=== PATIENT | female | born 1960 | race Caucasian/White ===

== ENCOUNTER 2019-09-07 10:12 | Emergency (ER) | payer OTHER, SELFPAY ==
[~2019-09-07] VITALS: Ht 172.7 cm; Wt 103.0 kg
[2019-09-07 10:20] VITALS: BP 147/79
[2019-09-07] MEDS ORDERED: ACETAMINOPHEN EXTRA STRENGTH 500 MG TAB PO ONE (12:20)
[2019-09-07 13:07] VITALS: BP 147/79
== END 2019-09-07 13:07 | disposition home or self-care (01) ==
LOC: MED 10:12 → EEVIPCON 10:12 → MED 13:07
DX: R05 Cough (principal); J45.909 Unspecified asthma, uncomplicated; M79.10 Myalgia, unspecified site; R51 Headache; Z20.828 Contact with and (suspected) exposure to other viral communicable diseases
CPT/HCPCS: 71045; 99283